=== PATIENT | male | born 1945 | race Hispanic/Latino ===

== ENCOUNTER → 2019-01-13 | Outpatient (CLI) | payer OTHER ==
[~2019-01-13] VITALS: Ht 162.6 cm; Wt 86.2 kg
[~2019-01-13] MED LIST: AMLO5TAB9 PO; ASPI-555 PO; CLON0.5T23 PO; CLOP75TA14 PO; CYAN50TA2 PO; ERGO400C PO; METO50TA18 PO; REGADENOSON 0.4 MG/5 ML PF SYG IVP SCH; SIMV20TA6 PO
== END | disposition home or self-care (01) ==
LOC: SHCH 08:30
PROVIDERS: ATTEND Internal Medicine Cardiovascular Disease
DX: R06.00 Dyspnea, unspecified (principal); I00 Rheumatic fever without heart involvement; R07.9 Chest pain, unspecified
CPT/HCPCS: 78452; 93017; 96374; A9500 ×2; J2785

== ENCOUNTER → 2019-01-27 | Outpatient (CLI) | payer OTHER ==
[~2019-01-27] MED LIST changes: -REGADENOSON 0.4 MG/5 ML PF SYG IVP SCH
== END | disposition home or self-care (01) ==
LOC: SHCH 09:56
PROVIDERS: ATTEND Internal Medicine Cardiovascular Disease
DX: I11.9 Hypertensive heart disease without heart failure (principal); I05.9 Rheumatic mitral valve disease, unspecified
CPT/HCPCS: 93306

== ENCOUNTER → 2019-09-29 | Outpatient (CLI) | payer OTHER ==
[~2019-09-29] MED LIST changes: +SIMV-43 PO; -SIMV20TA6 PO
== END | disposition home or self-care (01) ==
LOC: OIH 13:59
PROVIDERS: ATTEND Family Medicine
DX: M16.12 Unilateral primary osteoarthritis, left hip (principal); M25.752 Osteophyte, left hip; M47.816 Spondylosis without myelopathy or radiculopathy, lumbar region
CPT/HCPCS: 73502

== ENCOUNTER → 2019-10-21 | Outpatient (CLI) | payer OTHER | END | disposition home or self-care (01) | LOC: SHCH 13:31 | PROVIDERS: ATTEND Internal Medicine Cardiovascular Disease | DX: I65.23 Occlusion and stenosis of bilateral carotid arteries (principal) | CPT/HCPCS: 93880 ==

== ENCOUNTER → 2021-01-13 | Outpatient (CLI) | payer OTHER ==
[~2021-01-13] MED LIST changes: +AMLO-257 PO; -AMLO5TAB9 PO; -ASPI-555 PO; +ASPI-556 PO
== END | disposition home or self-care (01) ==
LOC: SHCH 14:48
PROVIDERS: ATTEND Internal Medicine Cardiovascular Disease
DX: I73.9 Peripheral vascular disease, unspecified (principal)
CPT/HCPCS: 93925

== ENCOUNTER → 2024-10-06 | Outpatient (CLI) | payer OTHER ==
[~2024-10-06] MED LIST changes: +CLOP-31 PO; -CLOP75TA14 PO
[2024-10-06] MEDS: REGADENOSON 0.4 MG/5 ML PF SYG IVP ONE (11:14)
--- NOTE | 2024-10-08 11:58 | HMCSR ---
APPROVED REPORT Height: 5 ft 4in Weight: 178 lbs TEST INDICATIONS Hypertension/HDD The imaging protocol used to acquire images was Rest Tc-99m/stress Tc-99m 1 day Consent: The procedure was explained and understood by the patient. Informerd consent was witnessed Luis E ACEVEDO RN First, low dose rest was performed then high dose stress. RESTING DATA: The resting ekg shows: NSR Rest SPECT myocardial perfusion imaging was performed in supine position 63 minutes following the int ravenous injection of 11.2 mCi of Tc-99 Sestamibi. Time of rest injection: 08:22: Date: 10/06/2024 Time of rest imagin:25: Date: 10/06/2024 PHARMACOLOGIC STRESS: Pharmacologic stress test was performed by injecting regadenoson 0.4 mg IV push followed by the intra venous injection of 32.3 mCi of Tc-99 Sestamibi. Time of stress injection: 09:49: Date: 10/06/2024 Time of stress imagin:14: Date: 10/06/2024 Heart Rate at time of stress injection: 87 bpm. Gated Stress SPECT was performed 85 minutes after stress injection. The images were gated to evaluate regional wall motion and calculate left ventricular ejection fracti on. STRESS DETAILS Reason for Termination: Infusion complete Stress Symptoms: Dyspnea Max HR Achieved: 72 bpm % of APMHR Achieved: 50 Max Blood Pressure: 152/80 mmHg Stress ECG: NSR LEFT VENTRICLE Size: The left ventricular size is normal. Systolic Function:The left ventricular systolic function is normal. Wall Motion: No regional wall motion abnormalities noted. The left ventricular ejection fraction was calculated to be 68%.TID = . LV PERFUSION The rest and stress images show normal perfusion. Conclusion The left ventricular size is normal. The left ventricular systolic function is normal. No regional wall motion abnormalities noted. The rest and stress images show normal perfusion. The left ventricular ejection fraction was calculated to be 68%.
== END | disposition home or self-care (01) ==
LOC: SHCH 07:52
PROVIDERS: ATTEND Internal Medicine Cardiovascular Disease
DX: I10 Essential (primary) hypertension (principal); Z79.899 Other long term (current) drug therapy
CPT/HCPCS: 78452; 93017; J2785; A9500 ×2